=== PATIENT | female | born 1940 | race Caucasian/White ===

== ENCOUNTER → 2023-05-17 09:22 | Outpatient (REF) | payer MEDICARE, OTHER, SELFPAY ==
[2023-05-17 09:49] LABS: % Basophils 0.8 % (0-2); % Eosinophils 1.8 % (0-6); % Immature Granulocytes 0.2 % (0-0.5); % Lymphocytes 35.1 % (20.5-51.1); % Monocytes 8.2 % (1.7-9.3); % Neutrophils 53.9 % (42.2-75.2); Absolute Eosinophils 0.1 10^3/uL (0-0.7); Absolute Lymphocytes 1.8 10^3/uL (1.2-3.4); Absolute Monocytes 0.4 10^3/uL (0.1-0.6); Absolute Neutrophils 2.7 10^3/uL (1.4-6.5); Hemoglobin 14.3 g/dL (12.0-16.0); Mean Corpuscular Hgb 30.6 pg (27.0-31.0); Mean Corpuscular Volume 89.9 fL (81.0-99.0); Mean Platelet Volume 10.4 fL (7.4-10.4); Nucleated Red Blood Cells % 0 %; Platelet Count 173 10^3/uL (130-400); Red Blood Cell Count 4.67 10^6/uL (4.20-5.40); Red Cell Dist. Width 13.2 % (11.5-14.5)
[2023-05-17 10:20] LABS: ALT (SGPT) 24 U/L (0-35); AST (SGOT) 35 U/L (14-36); Albumin 4.1 g/dl (3.5-5.0); Alkaline Phosphatase 92 U/L (38-126); Blood Urea Nitrogen 24 mg/dl (7-17); Calcium 10.6 mg/dl (8.4-10.2); Carbon Dioxide 31 mmol/L (22-30); Chloride 99 mmol/L (98-107); Glucose 112 mg/dl (70-99); HDL Cholesterol 70 mg/dl; LDL Cholesterol, Calculated 63 mg/dl; Potassium 4.5 mmol/L (3.5-5.1); Sodium 140 mmol/L (135-145); Total Bilirubin 1.1 mg/dl (0.2-1.3); Total Cholesterol 148 mg/dl (50-199); Total Protein 7.8 g/dl (6.3-8.2); Triglyceride 78 mg/dl (10-149); Very Low Density Lipoprotein 15 mg/dl (0-30); eGFR 56.95
[2023-05-17 12:13] LABS: Glycohemoglobin (HgbA1c) 6.5 % (4.0-5.6)
== END ==
LOC: REG 09:22
PROVIDERS: ATTENDING PHYSICIAN Internal Medicine
DX: E78.5 Hyperlipidemia, unspecified (principal); Z95.2 Presence of prosthetic heart valve; R73.01 Impaired fasting glucose
CPT/HCPCS: 36415; 80053; 80061; 83036; 85025

== ENCOUNTER → 2023-05-25 11:42 | Outpatient (REF) | payer MEDICARE, OTHER, SELFPAY ==
[2023-05-25 13:50] LABS: C-Reactive Protein < 5.00 mg/L (0.0-10.00)
[2023-05-25 15:28] LABS: Erythrocyte Sed Rate 8 mm/hour (0-20)
[2023-05-26 13:32] LABS: Rheumatoid Agglutinin Less Than 10 IU (<10 IU)
[2023-05-28 09:13] LABS: ANA, IgG Reflex to HEp-2 Detected (None Detected)
[2023-05-30 07:08] LABS: ANA, HEp-2, IgG Detected (<1:80)
[2023-05-30 07:47] LABS: ANA Pattern Speckled
== END ==
LOC: REG 11:42
PROVIDERS: ATTENDING PHYSICIAN Family Medicine
DX: M25.541 Pain in joints of right hand (principal); M25.542 Pain in joints of left hand; M25.50 Pain in unspecified joint
CPT/HCPCS: 36415; 73120; 85652; 86038; 86039; 86140; 86430

== ENCOUNTER → 2023-07-18 14:30 | Outpatient (REF) | payer MEDICARE, OTHER, SELFPAY ==
[2023-07-18 15:36] LABS: % Basophils 0.5 % (0-2); % Eosinophils 1.6 % (0-6); % Immature Granulocytes 0.2 % (0-0.5); % Lymphocytes 34.8 % (20.5-51.1); % Monocytes 7.1 % (1.7-9.3); % Neutrophils 55.8 % (42.2-75.2); Absolute Eosinophils 0.1 10^3/uL (0-0.7); Absolute Monocytes 0.4 10^3/uL (0.1-0.6); Absolute Neutrophils 3.1 10^3/uL (1.4-6.5); Hemoglobin 12.3 g/dL (12.0-16.0); Mean Corp Hgb Conc. 33.2 g/dL (33.0-37.0); Mean Corpuscular Hgb 30.6 pg (27.0-31.0); Mean Platelet Volume 10.1 fL (7.4-10.4); Nucleated Red Blood Cells % 0 %; Platelet Count 160 10^3/uL (130-400); Red Blood Cell Count 4.02 10^6/uL (4.20-5.40); Red Cell Dist. Width 13.1 % (11.5-14.5); White Blood Cell Count 5.6 10^3/uL (4.8-10.8)
[2023-07-18 15:46] LABS: Erythrocyte Sed Rate 15 mm/hour (0-20)
[2023-07-18 16:08] LABS: ALT (SGPT) 29 U/L (0-35); AST (SGOT) 37 U/L (14-36); Albumin 4.6 g/dl (3.5-5.0); Alkaline Phosphatase 103 U/L (38-126); Blood Urea Nitrogen 23 mg/dl (7-17); Calcium 9.9 mg/dl (8.4-10.2); Carbon Dioxide 29 mmol/L (22-30); Chloride 103 mmol/L (98-107); Creatine Phosphokinase 102 U/L (30-135); Glucose 102 mg/dl (70-99); Potassium 3.5 mmol/L (3.5-5.1); Sodium 139 mmol/L (135-145); Total Bilirubin 0.7 mg/dl (0.2-1.3); Total Protein 7.8 g/dl (6.3-8.2); Uric Acid 7.9 mg/dl (2.5-6.2); eGFR > 60.00
[2023-07-18 16:12] LABS: C-Reactive Protein < 5.00 mg/L (0.0-10.00)
[2023-07-18 16:30] LABS: Complement C3 119 mg/dl (88-165)
[2023-07-18 17:08] LABS: Urine Albumin Negative (Neg - Trace); Urine Bilirubin Negative (Negative); Urine Character Clear (Clear); Urine Color Yellow; Urine Glucose Negative (Negative); Urine Ketone Negative (Negative); Urine Leukocyte Negative (Negative); Urine Nitrite Negative (Negative); Urine Occult Blood Negative (Negative); Urine Urobilinogen Negative (Neg - 1+)
[2023-07-18 17:16] LABS: Urine Red Blood Cell None Seen /HPF (0-2); Urine Squamous Cell 0-2 /LPF (Few)
[2023-07-18 17:17] LABS: Urine White Cell None Seen /HPF (0-5)
[2023-07-18 17:36] LABS: Protein/creatinine Ratio 0.7; Urine Protein 10 mg/dl
[2023-07-20 14:29] LABS: Aldolase 4.3 U/L (1.2-7.6)
[2023-07-20 23:50] LABS: Anti-Xa Qualitative Interp Present (Not Present); Anticoagulant Med Neutralizati DOAC-Stop (Not Performed); Hexagonal Phospholipid Confirm Not Performed s (<=7.9); Neutralized PTT-LA Ratio Not Performed (<=1.20); Neutralized dRVTT Screen Ratio 0.92 (<=1.20); PTT-LA Ratio 0.96 (<=1.20); Prothrombin Time 16.2 s (12.0-15.5); Thrombin Time Not Performed s (<=19.5); dRVTT 1.1 Mix Ratio Not Performed (<=1.20); dRVTT Confirmation Ratio Not Performed (<=1.20); dRVTT Screen Ratio 1.24 (<=1.20)
[2023-07-21 01:34] LABS: CCP Antibody IgG/IgA 4 Units (0-19)
[2023-07-21 02:25] LABS: ANA, IgG Reflex to HEp-2 Detected (None Detected)
[2023-07-21 02:30] LABS: Beta-2-Glycoprotein I Ab. IgG <10 SGU (<=20); Beta-2-Glycoprotein I Ab. IgM <10 SMU (<=20)
[2023-07-21 08:13] LABS: Smith/RNP (ENA), IgG 1 Units (0-19)
[2023-07-21 14:44] LABS: Jo-1 Antibodies 1 AU/mL (0-40); SSA 52 (Ro)(ENA) Ab, IgG 3 AU/mL (0-40); SSA 60 (Ro)(ENA) Ab, IgG 82 AU/mL (0-40); SSB (La)(ENA) Ab, IgG 14 AU/mL (0-40); Smith (ENA) Antibody, IgG 1 AU/mL (0-40)
[2023-07-21 17:18] LABS: ds-DNA Ab, IgG Reflex To Titer 1 IU (0-24)
[2023-07-21 18:05] LABS: Cardiolipin IgA Antibody <10 APL (<=11); Cardiolipin IgM Antibody <10 MPL (<=12); Cardiolipin Igg Antibody <10 GPL (<=14)
[2023-07-22 13:20] LABS: ANA, HEp-2, IgG Detected (<1:80)
== END ==
LOC: REG 14:30
PROVIDERS: ATTENDING PHYSICIAN Physician Assistant; FAMILY PHYSICIAN Family Medicine
DX: G89.29 Other chronic pain (principal); I73.00 Raynaud's syndrome without gangrene; M06.4 Inflammatory polyarthropathy; M10.9 Gout, unspecified; M32.9 Systemic lupus erythematosus, unspecified; M54.50 Low back pain, unspecified; M79.89 Other specified soft tissue disorders; R76.8 Other specified abnormal immunological findings in serum
CPT/HCPCS: 36415; 80053; 81003; 81015; 82085; 82550; 82570; 84156; 84550; 85025; 85520; 85610; 85613; 85652; 85730; 86038; 86039; 86140; 86146; 86147; 86160; 86200; 86225; 86235

== ENCOUNTER → 2023-08-24 10:54 | Outpatient (REF) | payer MEDICARE, OTHER, SELFPAY ==
[2023-08-25 05:48] LABS: IgA 242 mg/dl (70-400); IgG 1560 mg/dl (700-1600); IgM 54 mg/dl (40-230)
[2023-08-25 15:57] LABS: Rheumatoid Agglutinin Less Than 10 IU (<10 IU)
[2023-08-26 10:12] LABS: IgE 52 kU/L (<=214)
== END ==
LOC: REG 10:54
PROVIDERS: ATTENDING PHYSICIAN Internal Medicine; FAMILY PHYSICIAN Family Medicine
DX: M35.00 Sjogren syndrome, unspecified (principal); R80.9 Proteinuria, unspecified; M79.672 Pain in left foot; R80.2 Orthostatic proteinuria, unspecified
CPT/HCPCS: 36415; 73630; 82784; 82785; 84155; 84165; 86430

== ENCOUNTER → 2023-08-29 11:42 | Outpatient (REF) | payer MEDICARE, OTHER, SELFPAY ==
[2023-08-29 14:15] LABS: Urine Protein 14 mg/dl (0-12)
[2023-08-29 15:01] LABS: 24 Hour Urine Total Volume 1250 ml
== END ==
LOC: REG 11:42
PROVIDERS: ATTENDING PHYSICIAN Internal Medicine; FAMILY PHYSICIAN Family Medicine
DX: M35.00 Sjogren syndrome, unspecified (principal); R80.9 Proteinuria, unspecified
CPT/HCPCS: 36415; 81050; 84156

== ENCOUNTER → 2023-11-10 10:47 | Outpatient (REF) | payer MEDICARE, OTHER, SELFPAY | LOC: PAVMRI 10:47 | PROVIDERS: ATTENDING PHYSICIAN Internal Medicine; FAMILY PHYSICIAN Family Medicine | DX: M79.672 Pain in left foot (principal) | CPT/HCPCS: 73720 ==

== ENCOUNTER → 2023-11-15 09:27 | Outpatient (REF) | payer MEDICARE, OTHER, SELFPAY ==
[2023-11-15 09:56] LABS: % Basophils 0.4 % (0-2); % Eosinophils 2.3 % (0-6); % Lymphocytes 35.2 % (20.5-51.1); % Neutrophils 54.1 % (42.2-75.2); Absolute Eosinophils 0.1 10^3/uL (0-0.7); Absolute Lymphocytes 1.8 10^3/uL (1.2-3.4); Absolute Monocytes 0.4 10^3/uL (0.1-0.6); Absolute Neutrophils 2.8 10^3/uL (1.4-6.5); Hematocrit 39.9 % (37.0-47.0); Hemoglobin 13.6 g/dL (12.0-16.0); Mean Corp Hgb Conc. 34.1 g/dL (33.0-37.0); Mean Corpuscular Hgb 31.4 pg (27.0-31.0); Mean Corpuscular Volume 92.1 fL (81.0-99.0); Nucleated Red Blood Cells % 0 %; Platelet Count 155 10^3/uL (130-400); Red Blood Cell Count 4.33 10^6/uL (4.20-5.40); Red Cell Dist. Width 13.2 % (11.5-14.5); White Blood Cell Count 5.1 10^3/uL (4.8-10.8)
[2023-11-15 10:28] LABS: ALT (SGPT) 24 U/L (0-35); AST (SGOT) 36 U/L (14-36); Albumin 4.5 g/dl (3.5-5.0); Alkaline Phosphatase 93 U/L (38-126); Blood Urea Nitrogen 23 mg/dl (7-17); Calcium 9.8 mg/dl (8.4-10.2); Carbon Dioxide 29 mmol/L (22-30); Chloride 103 mmol/L (98-107); Glucose 107 mg/dl (70-99); HDL Cholesterol 65 mg/dl; LDL Cholesterol, Calculated 61 mg/dl; Sodium 143 mmol/L (135-145); Total Bilirubin 0.9 mg/dl (0.2-1.3); Total Cholesterol 142 mg/dl (50-199); Total Protein 7.4 g/dl (6.3-8.2); Triglyceride 82 mg/dl (10-149); Very Low Density Lipoprotein 16 mg/dl (0-30); eGFR > 60.00
[2023-11-15 10:34] LABS: Glycohemoglobin (HgbA1c) 6.3 % (4.0-5.6)
== END ==
LOC: REG 09:27
PROVIDERS: ATTENDING PHYSICIAN Family Medicine
DX: R73.01 Impaired fasting glucose (principal); E78.5 Hyperlipidemia, unspecified; R53.83 Other fatigue
CPT/HCPCS: 36415; 80053; 80061; 83036; 85025

== ENCOUNTER → 2024-02-01 16:28 | Outpatient (REF) | payer MEDICARE, OTHER, SELFPAY | LOC: WDC 16:28 | PROVIDERS: ATTENDING PHYSICIAN Obstetrics & Gynecology Gynecology; FAMILY PHYSICIAN Family Medicine | DX: Z01.419 Encounter for gynecological examination (general) (routine) without abnormal findings (principal); Z12.31 Encounter for screening mammogram for malignant neoplasm of breast | CPT/HCPCS: 77063; 77067 ==

== ENCOUNTER 2024-03-12 14:51 | Emergency (ER) | payer MEDICARE, OTHER, SELFPAY ==
[2024-03-12] VITALS (7 sets, daily range): BP systolic 147–170; BP diastolic 76–100; BMI 22.5
[2024-03-12 15:45] LABS: % Basophils 0.5 % (0-2); % Eosinophils 2.6 % (0-6); % Immature Granulocytes 0.6 % (0-0.5); % Lymphocytes 23.9 % (20.5-51.1); % Monocytes 6.5 % (1.7-9.3); % Neutrophils 65.9 % (42.2-75.2); Absolute Eosinophils 0.2 10^3/uL (0-0.7); Absolute Lymphocytes 1.5 10^3/uL (1.2-3.4); Absolute Monocytes 0.4 10^3/uL (0.1-0.6); Absolute Neutrophils 4.2 10^3/uL (1.4-6.5); Hematocrit 42.4 % (37.0-47.0); Hemoglobin 14.3 g/dL (12.0-16.0); Mean Corp Hgb Conc. 33.7 g/dL (33.0-37.0); Mean Corpuscular Hgb 30.8 pg (27.0-31.0); Mean Corpuscular Volume 91.4 fL (81.0-99.0); Nucleated Red Blood Cells % 0 %; Platelet Count 150 10^3/uL (130-400); Red Blood Cell Count 4.64 10^6/uL (4.20-5.40); Red Cell Dist. Width 13.3 % (11.5-14.5); White Blood Cell Count 6.4 10^3/uL (4.8-10.8)
[2024-03-12 16:02] LABS: ALT (SGPT) 43 U/L (0-35); AST (SGOT) 56 U/L (14-36); Albumin 4.7 g/dl (3.5-5.0); Alkaline Phosphatase 85 U/L (38-126); Blood Urea Nitrogen 14 mg/dl (7-17); Carbon Dioxide 29 mmol/L (22-30); Chloride 102 mmol/L (98-107); Glucose 114 mg/dl (70-99); Potassium 4.5 mmol/L (3.5-5.1); Sodium 138 mmol/L (135-145); Total Protein 7.7 g/dl (6.3-8.2); eGFR > 60.00
--- NOTE | 2024-03-12 18:36 | ED.GENMED ---
History of Present Illness
General
Chief Complaint: Abdominal Symptoms
Source: patient
Exam Limitations: none
Time Seen by Provider: 03/12/24 18:18
History of Present Illness
History of Present Illness:
83-year-old female on [place] presents with persistent headache and dizziness after striking her head 2 days ago getting into her vehicle. That evening she also had episodes of nausea vomiting and diarrhea. She has since been drinking water and
eating toast. She denies abdominal pain. No further diarrhea or vomiting. She is concerned from her head strike. She also concerns that she started hydroxychloroquine 3 weeks ago for presumed Sjogren's. She did stop this Tuesday after having
the episodes of vomiting and diarrhea. No chest pain
Past History
Past History
ED Past Medical History: Arrthythmia, CVA and HTN
ED Past Surgical History: Gynecological
Social History
Tobacco: Non-smoker
Alcohol: None
Drug: None
Personal:
Living: with family
Family History
Family History: Other (Father with [place] mother with stroke)
Phy Exam
Physical Exam
Physical Exam:
General: Well-appearing female no acute respiratory distress
HEENT: Normocephalic contusion noted to right forehead. Pupils equal round react light TMs normal
Heart: Regular rate and rhythm no murmurs
Lungs: Clear no wheeze
Abdomen is soft nontender nondistended no guarding or rebound
Neurologic: Alert and oriented normal gait conversing appropriately
Course
Orders/Labs/Results
Orders:
Orders
03/12/24 15:35
Complete Blood Count/With Diff Urgent
Comprehensive Metabolic Panel Urgent
03/12/24 18:35
CT Head W/o Iv Contrast Urgent
Comment:
Reason For Exam: head injury, dizziness
Abnormal Lab Results
03/12/24
15:35
Immature Gran % 0.6 H %
(0-0.5)
Glucose 114 H mg/dl
(70-99)
AST 56 H U/L
(14-36)
ALT 43 H U/L
(0-35)
03/12/24 15:35
03/12/24 15:35
Vital Signs
Initial and Last Documented VS:
Initial Vital Signs
Temp Pulse Resp BP Pulse Ox
98 F 102 18 147/99 98
03/12/24 15:21 03/12/24 15:21 03/12/24 15:21 03/12/24 15:21 03/12/24 15:21
Last Documented Vital Signs
Temp Pulse Resp BP Pulse Ox
98 F 93 16 163/80 97
03/12/24 15:21 03/12/24 22:15 03/12/24 22:15 03/12/24 22:00 03/12/24 22:15
MDM/Problems Addressed
Differential Diagnosis Includes:
Patient's main concern is dizziness in the setting of recent head strike on blood thinners. Triage note relayed that she has been nauseous vomiting and having diarrhea since Tuesday however 3 days ago she had 4 hours worth of nausea vomiting
diarrhea but since then she has had no further vomiting or diarrhea. She is tolerating oral fluids she has a benign abdominal assessment.
Labs reviewed without significant finding we will CT the patient's head secondary to the trauma
*Critical Care Note
Total Time (30-74mins, 75-104mins- exclusive of procedures): Not Applicable
Update Note
Update Note:
CT of the head negative. Labs reviewed without significant finding. Patient reassured. Stable for discharge home
ED Attending Note
-
Portions of this chart may have been created with voice recognition software.� Occasional wrong word or��sound alike� substitutions may have occurred due to the inherent limitations of voice recognition software.
Discharge Plan
Departure
Patient Disposition: Home (Routine Discharge)
Date of Disposition: 03/12/24
Time of Disposition: 23:00
Patient with high blood pressure during this ER visit?: No
Discharge Problem:
Contusion
Instructions: Contusion
Prescriptions:
No Action
estradiol 1 MG tablet
0.5 mg PO DAILY
diclofenac sodium 1 DROP drops
1 drp ophthalmic (eye) QIDPRN PRN (Reason: pain R eye)
calcium carbonate [Antacid (calcium carbonate)] 1 TABLET tablet,chewable
500 mg PO BIDPRN PRN (Reason: heart burn)
loratadine 10 MG tablet
10 mg PO DAILY PRN (Reason: allergies)
Ca-D3-mag [id number]-mqq-phuc-bor [Calcium 600-D3 Plus (mag-zinc)] 1 EACH tablet
1 ea PO BID
Patient Comments:
patient is off for 2 months now, will start back up in December
famotidine 20 MG tablet
40 mg PO HS
metoprolol succinate 25 MG tablet extended release 24 hr
50 mg PO HS
furosemide 20 MG tablet
20 mg PO .EVERYOTHERDAY
ipratropium bromide 1 SPRAY spray,non-aerosol
2 spray intranasal TID
rosuvastatin 5 MG tablet
5 mg PO QPM
guaifenesin [Mucus Relief ER] 600 MG tablet extended release 12hr
600 mg PO DAILY
metoprolol succinate 25 MG tablet extended release 24 hr
37.5 mg PO .AM
diltiazem HCl 120 MG capsule,extended release 24hr
120 mg PO DAILY
Voltaren
topical PRN PRN (Reason: pain)
acetaminophen 325 MG tablet
500 mg PO Q4HPRN PRN (Reason: pain)
aspirin 81 MG tablet,delayed release (DR/EC)
81 mg PO DAILY
cyanocobalamin (vitamin B-12) 1,000 MCG tablet
1,000 mcg PO DAILY
apixaban [Eliquis] 5 MG tablet
5 mg PO BID
meclizine 25 MG tablet
25 mg PO Q8HPRN PRN (Reason: nausea or vertigo) Qty: 12 0RF
ondansetron 4 MG tablet,disintegrating
4 mg PO TIDPRN PRN (Reason: nausea/vomiting) Qty: 12 0RF
Referrals:
Onel Colmenares Jr., DO [Family Provider] -
Activity Restrictions/Additional Instructions:
Return here for worsening symptoms otherwise follow-up with your doctor
Interventions
Interventions:
*Risk Screen - Suicide Last Done: 03/12/24 15:21
*General Assessment Last Done: 03/12/24 15:21
*Neglect/Abuse Screening Last Done: 03/12/24 15:21
ED- Fall Risk Assessment Last Done: 03/12/24 18:47
*ED COVID-19 Vaccine History Last Done: 03/12/24 18:46
UP-Valkjm-Slpycsvvsr Assessment Last Done: 03/12/24 18:47
Discharge Date and Time
Print Language: KAZAKH
== END 2024-03-12 23:35 | disposition home or self-care (01) ==
LOC: EMR 14:51
PROVIDERS: Emergency Medicine; EMERGENCY PHYSICIAN Student in an Organized Health Care Education/Training Program; FAMILY PHYSICIAN Family Medicine
DX: S00.83XA Contusion of other part of head, initial encounter (principal); V48.4XXA Person boarding or alighting a car injured in noncollision transport accident, initial encounter; I10 Essential (primary) hypertension; Z86.73 Personal history of transient ischemic attack (TIA), and cerebral infarction without residual deficits; Z79.01 Long term (current) use of anticoagulants
CPT/HCPCS: 99284; 70450; 80053; 85025

== ENCOUNTER → 2024-03-23 09:39 | Outpatient (REF) | payer MEDICARE, OTHER, SELFPAY ==
[2024-03-23 11:02] LABS: % Basophils 0.7 % (0-2); % Eosinophils 1.2 % (0-6); % Immature Granulocytes 0.2 % (0-0.5); % Lymphocytes 27.4 % (20.5-51.1); % Monocytes 6.5 % (1.7-9.3); Absolute Eosinophils 0.1 10^3/uL (0-0.7); Absolute Lymphocytes 1.6 10^3/uL (1.2-3.4); Absolute Monocytes 0.4 10^3/uL (0.1-0.6); Absolute Neutrophils 3.7 10^3/uL (1.4-6.5); Hematocrit 46.8 % (37.0-47.0); Hemoglobin 15.3 g/dL (12.0-16.0); Mean Corp Hgb Conc. 32.7 g/dL (33.0-37.0); Mean Corpuscular Hgb 29.9 pg (27.0-31.0); Mean Corpuscular Volume 91.4 fL (81.0-99.0); Mean Platelet Volume 10.4 fL (7.4-10.4); Nucleated Red Blood Cells % 0 %; Platelet Count 166 10^3/uL (130-400); Red Blood Cell Count 5.12 10^6/uL (4.20-5.40); Red Cell Dist. Width 13.2 % (11.5-14.5); White Blood Cell Count 5.8 10^3/uL (4.8-10.8)
[2024-03-23 12:06] LABS: ALT (SGPT) 36 U/L (0-35); AST (SGOT) 48 U/L (14-36); Albumin 4.8 g/dl (3.5-5.0); Alkaline Phosphatase 68 U/L (38-126); Blood Urea Nitrogen 15 mg/dl (7-17); Calcium 10.6 mg/dl (8.4-10.2); Carbon Dioxide 32 mmol/L (22-30); Chloride 97 mmol/L (98-107); Glucose 103 mg/dl (70-99); HDL Cholesterol 76 mg/dl; LDL Cholesterol, Calculated 54 mg/dl; Potassium 3.8 mmol/L (3.5-5.1); Sodium 139 mmol/L (135-145); Total Bilirubin 1.2 mg/dl (0.2-1.3); Total Cholesterol 143 mg/dl (50-199); Total Protein 7.8 g/dl (6.3-8.2); Triglyceride 69 mg/dl (10-149); Very Low Density Lipoprotein 13 mg/dl (0-30); eGFR > 60.00
== END ==
LOC: REG 09:39
PROVIDERS: ATTENDING PHYSICIAN Family Medicine
DX: R73.01 Impaired fasting glucose (principal); E78.5 Hyperlipidemia, unspecified; M25.50 Pain in unspecified joint; R53.83 Other fatigue; Z13.29 Encounter for screening for other suspected endocrine disorder
CPT/HCPCS: 36415; 80053; 80061; 83036; 84443; 85025

== ENCOUNTER → 2024-03-30 09:10 | Outpatient (REF) | payer MEDICARE, OTHER, SELFPAY ==
[2024-03-30 10:30] LABS: ALT (SGPT) 31 U/L (0-35); AST (SGOT) 42 U/L (14-36); Blood Urea Nitrogen 14 mg/dl (7-17); Calcium 10.2 mg/dl (8.4-10.2); Carbon Dioxide 34 mmol/L (22-30); Chloride 99 mmol/L (98-107); GGTP 29 U/L (12-43); Glucose 110 mg/dl (70-99); Potassium 5.2 mmol/L (3.5-5.1); Sodium 139 mmol/L (135-145); eGFR > 60.00
[2024-03-30 11:02] LABS: Hepatitis B Surface Antigen Negative (Negative)
[2024-03-30 11:20] LABS: Hepatitis B Core Ab, Total Negative (Negative); Hepatitis B Surface Antibody Negative; Hepatitis C Antibody Negative (Negative)
== END ==
LOC: REG 09:10
PROVIDERS: ATTENDING PHYSICIAN Family Medicine
DX: R79.89 Other specified abnormal findings of blood chemistry (principal); E78.5 Hyperlipidemia, unspecified
CPT/HCPCS: 36415; 80048; 82977; 84450; 84460; 86704; 86706; 86803; 87340

== ENCOUNTER → 2024-04-10 07:48 | Outpatient (REF) | payer MEDICARE, OTHER, SELFPAY | LOC: HWRAD 07:48 | PROVIDERS: ATTENDING PHYSICIAN Family Medicine | DX: R79.89 Other specified abnormal findings of blood chemistry (principal) | CPT/HCPCS: 76700 ==

== ENCOUNTER → 2024-04-20 10:55 | Outpatient (REF) | payer MEDICARE, OTHER, SELFPAY | LOC: RAD 10:55 | PROVIDERS: ATTENDING PHYSICIAN Family Medicine | DX: Z78.0 Asymptomatic menopausal state (principal); Z13.820 Encounter for screening for osteoporosis | CPT/HCPCS: 77080 ==

== ENCOUNTER → 2024-08-15 08:46 | Outpatient (REF) | payer MEDICARE, OTHER, SELFPAY ==
[2024-08-15 09:27] LABS: % Basophils 0.6 % (0-2); % Immature Granulocytes 1.2 % (0-0.5); % Lymphocytes 27.9 % (20.5-51.1); % Monocytes 7.8 % (1.7-9.3); % Neutrophils 62.5 % (42.2-75.2); Absolute Immature Granulocytes 0.1 10^3/uL (0-0.05); Absolute Lymphocytes 1.4 10^3/uL (1.2-3.4); Absolute Monocytes 0.4 10^3/uL (0.1-0.6); Absolute Neutrophils 3.1 10^3/uL (1.4-6.5); Hematocrit 41.3 % (37.0-47.0); Hemoglobin 13.3 g/dL (12.0-16.0); Mean Corp Hgb Conc. 32.2 g/dL (33.0-37.0); Mean Corpuscular Hgb 29.9 pg (27.0-31.0); Mean Corpuscular Volume 92.8 fL (81.0-99.0); Mean Platelet Volume 10.1 fL (7.4-10.4); Nucleated Red Blood Cells % 0 %; Platelet Count 141 10^3/uL (130-400); Red Blood Cell Count 4.45 10^6/uL (4.20-5.40); Red Cell Dist. Width 13.3 % (11.5-14.5); White Blood Cell Count 4.9 10^3/uL (4.8-10.8)
[2024-08-15 10:09] LABS: Glycohemoglobin (HgbA1c) 6.2 % (4.0-5.6)
[2024-08-15 10:33] LABS: ALT (SGPT) 40 U/L (0-35); AST (SGOT) 43 U/L (14-36); Albumin 4.2 g/dl (3.5-5.0); Alkaline Phosphatase 106 U/L (38-126); Blood Urea Nitrogen 19 mg/dl (7-17); Calcium 10.4 mg/dl (8.4-10.2); Carbon Dioxide 27 mmol/L (22-30); Chloride 107 mmol/L (98-107); Glucose 105 mg/dl (70-99); HDL Cholesterol 50 mg/dl; LDL Cholesterol, Calculated 37 mg/dl; Potassium 4.5 mmol/L (3.5-5.1); Sodium 141 mmol/L (135-145); Total Bilirubin 1.1 mg/dl (0.2-1.3); Total Cholesterol 99 mg/dl (50-199); Total Protein 7.2 g/dl (6.3-8.2); Triglyceride 63 mg/dl (10-149); Very Low Density Lipoprotein 12 mg/dl (0-30)
== END ==
LOC: REG 08:46
PROVIDERS: ATTENDING PHYSICIAN Family Medicine
DX: R73.01 Impaired fasting glucose (principal); E78.5 Hyperlipidemia, unspecified; M25.50 Pain in unspecified joint; R53.83 Other fatigue
CPT/HCPCS: 36415; 80053; 80061; 83036; 85025

== ENCOUNTER → 2024-09-19 08:39 | Outpatient (REF) | payer MEDICARE, OTHER, SELFPAY ==
[2024-09-19 09:42] LABS: Hematocrit 41.4 % (37.0-47.0); Hemoglobin 13.4 g/dL (12.0-16.0); Mean Corp Hgb Conc. 32.4 g/dL (33.0-37.0); Mean Corpuscular Volume 91.6 fL (81.0-99.0); Nucleated Red Blood Cells % 0 %; Platelet Count 153 10^3/uL (130-400); Red Cell Dist. Width 13.8 % (11.5-14.5)
[2024-09-19 10:13] LABS: Glycohemoglobin (HgbA1c) 6.4 % (4.0-5.6)
[2024-09-19 11:14] LABS: CRP, Ultra Sensitive 1.71 mg/L (0.30-5.00)
[2024-09-19 11:17] LABS: ALT (SGPT) 38 U/L (0-35); AST (SGOT) 42 U/L (14-36); Albumin 4.3 g/dl (3.5-5.0); Alkaline Phosphatase 102 U/L (38-126); Blood Urea Nitrogen 22 mg/dl (7-17); Calcium 10.4 mg/dl (8.4-10.2); Carbon Dioxide 26 mmol/L (22-30); Chloride 109 mmol/L (98-107); Glucose 110 mg/dl (70-99); HDL Cholesterol 57 mg/dl; LDL Cholesterol, Calculated 57 mg/dl; Magnesium 2.1 mg/dl (1.6-2.3); Potassium 4.7 mmol/L (3.5-5.1); Sodium 141 mmol/L (135-145); Total Protein 7.3 g/dl (6.3-8.2); Very Low Density Lipoprotein 11 mg/dl (0-30); eGFR > 60.00
== END ==
LOC: REG 08:39
PROVIDERS: ATTENDING PHYSICIAN Internal Medicine Cardiovascular Disease; FAMILY PHYSICIAN Family Medicine
DX: I48.0 Paroxysmal atrial fibrillation (principal); I35.0 Nonrheumatic aortic (valve) stenosis; I35.1 Nonrheumatic aortic (valve) insufficiency; I10 Essential (primary) hypertension; E78.5 Hyperlipidemia, unspecified; I47.10 Supraventricular tachycardia, unspecified; I49.3 Ventricular premature depolarization; R09.89 Other specified symptoms and signs involving the circulatory and respiratory systems; I34.0 Nonrheumatic mitral (valve) insufficiency; R73.01 Impaired fasting glucose; R73.03 Prediabetes
CPT/HCPCS: 36415; 80053; 80061; 82550; 83036; 83718; 83735; 83880; 84439; 84443; 85025; 86141

== ENCOUNTER → 2024-10-12 10:20 | Outpatient (REF) | payer MEDICARE, OTHER, SELFPAY | LOC: RAD 10:20 | PROVIDERS: ATTENDING PHYSICIAN Internal Medicine Cardiovascular Disease; FAMILY PHYSICIAN Family Medicine | DX: I48.0 Paroxysmal atrial fibrillation (principal); I35.0 Nonrheumatic aortic (valve) stenosis; I35.1 Nonrheumatic aortic (valve) insufficiency; I10 Essential (primary) hypertension; E78.5 Hyperlipidemia, unspecified; I47.10 Supraventricular tachycardia, unspecified; I49.3 Ventricular premature depolarization; I34.0 Nonrheumatic mitral (valve) insufficiency; R73.01 Impaired fasting glucose; I80.291 Phlebitis and thrombophlebitis of other deep vessels of right lower extremity; I80.209 Phlebitis and thrombophlebitis of unspecified deep vessels of unspecified lower extremity | CPT/HCPCS: 93971 ==

== ENCOUNTER 2024-12-08 20:55 | Emergency (ER) | payer MEDICARE, OTHER, SELFPAY ==
[2024-12-08 20:59] VITALS: BMI 21.6
[2024-12-08 21:01] VITALS: BP 159/91
[2024-12-08 21:18] LABS: Hematocrit 41.4 % (37.0-47.0); Hemoglobin 13.9 g/dL (12.0-16.0); Mean Corp Hgb Conc. 33.6 g/dL (33.0-37.0); Mean Corpuscular Volume 88.5 fL (81.0-99.0); Nucleated Red Blood Cells % 0 %; Platelet Count 153 10^3/uL (130-400); Red Cell Dist. Width 14.1 % (11.5-14.5)
[2024-12-08 22:00] VITALS: BP 137/75
[2024-12-08 22:00] LABS: Blood Urea Nitrogen 21 mg/dl (7-17); Calcium 9.8 mg/dl (8.4-10.2); Carbon Dioxide 27 mmol/L (22-30); Chloride 102 mmol/L (98-107); Estimated Creatinine Clearance 48 ml/min; Glucose 184 mg/dl (70-99); Lipase 279 U/L (23-300); Sodium 137 mmol/L (135-145); eGFR > 60.00
[2024-12-08 23:00] VITALS: BP 135/74
[2024-12-08 23:19] LABS: ALT (SGPT) 33 U/L (0-35); AST (SGOT) 42 U/L (14-36); Albumin 4.3 g/dl (3.5-5.0); Alkaline Phosphatase 104 U/L (38-126); Potassium 3.9 mmol/L (3.5-5.1); Total Protein 7.3 g/dl (6.3-8.2)
[2024-12-09] VITALS (7 sets, daily range): BP systolic 113–142; BP diastolic 59–89; PULSE 96–104
[2024-12-09] MEDS: ANTIVERT 25 MG PO (00:05)
--- NOTE | 2024-12-09 01:23 | ED.GENMED ---
History of Present Illness
General
Chief Complaint: Dizziness
Source: patient and previous hospital records (ED visit for somewhat similar complaint September 2020; physical therapy sessions 2020 and again 2022 for dizziness/vertigo treatment)
Exam Limitations: none
Time Seen by Provider: 12/08/24 22:50
Nursing documentation reviewed up to this point in time: agreed with
History of Present Illness
History of Present Illness:
The patient is a 83-year-old female who presented with a sudden onset of dizziness while cooking dinner. The dizziness began around 7:30 PM and was described as severe enough to compel her to lie down on the sofa, where she felt as though the couch
was moving towards her, creating a sensation of being engulfed. The patient then experienced vomiting. She reports no headache or neck pain. At the time of the episode, her , who has significant visual impairment, stayed with her. Upon
arrival of EMS, she was administered ondansetron for nausea, which provided relief. The patient mentioned a history of atrial fibrillation and is currently on apixaban and metoprolol. She also has a history of a stroke in 2018, which resulted in
persistent mild left-arm weakness. The patient was previously diagnosed with vertigo in 2020 and engaged in physical therapy during 2020 and 2022. She reports no fall during the current episode.
Currently feeling markedly improved.
Upon review of records, evaluated in this ED September 2020 with somewhat similar complaints of dizziness, a sense of spinning, movement that was worse with change in position. Unremarkable ED visit at that time, was given a dose of meclizine with
improvement.
She has history of aortic stenosis status post TAVR October 2019. Follows regularly with cardiology and was started on lisinopril just 2 days ago. Patient is concerned that lisinopril may be cause for her symptoms. She denies lightheadedness or a
sensation that she will faint. No chest pain or palpitations. No reported hypotension prehospital.
Past History
Past History
ED Past Medical History: Arrthythmia (Chronic atrial fibrillation), CHF, CVA, HTN, Hypercholesterolemia, Valvular disease and Psychiatric
ED Past Surgical History: Cardiac (TAVR 2020) and Gynecological (Hysterectomy)
Social History
Tobacco: Non-smoker
Alcohol: None
Drug: None
Personal:
Living: with family
Family History
Family History: Other (Father with [place] mother with stroke)
Phy Exam
Physical Exam
Physical Exam:
GENERAL: 83-year-old woman appears somewhat younger than stated age, bright and alert, pleasant, easily communicative and in no acute distress.
EYE: pupils equal and reactive. Extraocular muscles intact. No nystagmus. Negative test of skew. Anicteric
NECK: Supple, nontender, no meningismus, no significant adenopathy.
ENT: posterior pharynx is clear, oral mucosa is moist. TM clear b/l, nares patent.
CARDIAC: Irregularly irregular at a rate of 70-80. 2/6 holosystolic murmur left sternal border
LUNGS: Clear breath sounds bilaterally, no acute respiratory distress, no wheezes/rales/rhonchi
ABDOMEN: Soft, nondistended, without focal tenderness, normoactive BS.
NEUROLOGICAL: Alert and oriented x3, no focal neuro deficits. Motor strength is 5/5 bilaterally. Gross sensation is intact. Kaylene-Hallpike minimally positive with head rotation to the left.
SKIN: Warm and dry, normal color, skin intact. No rash.
MUSCULOSKELETAL: No C/C/E. peripheral pulses are full and equal b/l. No palpable tenderness.
PSYCH: Normal and appropriate interaction.
Course
Orders/Labs/Results
Orders:
Orders
12/08/24 21:02
EKG [Electrocardiogram (*1)] Urgent
Reason for Study: Vertigo / Dizzy
EKG- Treatment ONCE
12/08/24 21:06
Basic Metabolic Panel Urgent
Complete Blood Count/With Diff Urgent
Lipase Urgent
12/08/24 22:48
Hep Liver [Yvcdh-Dnra-Viilplt] Urgent
Potassium Urgent
12/08/24 23:45
Meclizine [Antivert] 25 mg PO NOW STA
12/09/24 00:04
CT Head W/o Iv Contrast Urgent
Reason For Exam: acute dizziness, N/V, on Eliquis
12/09/24 02:29
Orthostatic VS- Treatment ONCE
Abnormal Lab Results
12/08/24 12/08/24
21:06 22:48
BUN 21 H mg/dl
(7-17)
Glucose 184 H mg/dl
(70-99)
AST 42 H U/L
(14-36)
12/08/24 21:06
12/08/24 22:48
Vital Signs
Initial and Last Documented VS:
Initial Vital Signs
Temp Pulse Resp BP Pulse Ox
97.7 F 102 18 159/91 99
12/08/24 21:01 12/08/24 21:01 12/08/24 21:01 12/08/24 21:01 12/08/24 21:01
Last Documented Vital Signs
Temp Pulse Resp BP Pulse Ox
97.7 F 100 15 142/68 98
12/08/24 21:01 12/09/24 02:00 12/09/24 02:00 12/09/24 01:26 12/09/24 02:00
MDM/Problems Addressed
Differential Diagnosis Includes:
The Differential Diagnosis includes, in no particular order and is not limited to:
- Benign Paroxysmal Positional Vertigo
- Vestibular Neuritis
- Labyrinthitis
- M�ni�re�s Disease
- Orthostatic Hypotension
- Hypoglycemia
- Dehydration
- Transient Ischemic Attack
- Inner Ear Infection
- Medication Side Effect
MDM/Problems Addressed:
Acute Problems:
- Dizziness
- Vomiting
Chronic Problems:
- Atrial fibrillation
- History of stroke with residual left-arm weakness
Plan:
- Administer meclizine for dizziness.
- Conduct a CT scan of the head to rule out intracranial pathology due to her anticoagulation therapy with apixaban.
- Provide water for hydration.
- Monitor symptoms and reassess if necessary.
Chronic conditions affecting care: HTN and Neurological disorder
*Pulse Oximetry
SaO2: 99
Oxygen Mode of Delivery: Room air
Patient hypoxic: no
*EKG
Interpreted by ED Provider?: Yes
Interpretation: abnormal
Comparison EKG: no changes (Unchanged from previous 2020)
Rate: normal
Rhythm: a-fib
Tilden: normal axis
Interval: long QT (Borderline long QT)
QRS Pattern: normal QRS and poor R-wave progression
Ischemia: non-specific ST changes
*[employer]anger Interpretation
Rate: normal
Rhythm: a-fib
*Critical Care Note
Total Time (30-74mins, 75-104mins- exclusive of procedures): Not Applicable
Update Note
Update Note:
03:30
CT is unremarkable.
Patient has had complete resolution of dizziness. No further nausea.
Orthostatic vital signs are negative.
She is ambulated to and from the bathroom with steady unaided gait.
Acute vertigo appears benign, peripheral in nature. Similar episodes in the past.
A prescription for meclizine has been provided for as needed dizziness.
Recommend prompt follow-up with PCP for recheck.
Return precautions discussed.
ED Attending Note
-
Portions of this chart may have been created with voice recognition software.� Occasional wrong word or��sound alike� substitutions may have occurred due to the inherent limitations of voice recognition software.
Discharge Plan
Departure
Patient Disposition: Home (Routine Discharge)
Date of Disposition: 12/09/24
Time of Disposition: 03:33
Patient with high blood pressure during this ER visit?: No
Condition: Good
Discharge Problem:
Acute onset of severe vertigo
Instructions: Vertigo (a Type of Dizziness) (DC)
Prescriptions:
New
meclizine 25 mg tablet
25 mg PO QID PRN (Reason: dizziness, nausea) Qty: 20 0RF
No Action
estradiol 1 MG tablet
0.5 mg PO DAILY
diclofenac sodium 1 DROP drops
1 drp ophthalmic (eye) QIDPRN PRN (Reason: pain R eye)
calcium carbonate [Antacid (calcium carbonate)] 1 TABLET tablet,chewable
500 mg PO BIDPRN PRN (Reason: heart burn)
loratadine 10 MG tablet
10 mg PO DAILY PRN (Reason: allergies)
Ca-D3-mag [id number]-vjk-phuc-bor [Calcium 600-D3 Plus (mag-zinc)] 1 EACH tablet
1 ea PO BID
Patient Comments:
patient is off for 2 months now, will start back up in December
famotidine 20 MG tablet
40 mg PO HS
metoprolol succinate 25 MG tablet extended release 24 hr
50 mg PO HS
furosemide 20 MG tablet
20 mg PO .EVERYOTHERDAY
ipratropium bromide 1 SPRAY spray,non-aerosol
2 spray intranasal TID
rosuvastatin 5 MG tablet
5 mg PO QPM
guaifenesin [Mucus Relief ER] 600 MG tablet extended release 12hr
600 mg PO DAILY
metoprolol succinate 25 MG tablet extended release 24 hr
37.5 mg PO .AM
diltiazem HCl 120 MG capsule,extended release 24hr
120 mg PO DAILY
Voltaren
topical PRN PRN (Reason: pain)
acetaminophen 325 MG tablet
500 mg PO Q4HPRN PRN (Reason: pain)
aspirin 81 MG tablet,delayed release (DR/EC)
81 mg PO DAILY
cyanocobalamin (vitamin B-12) 1,000 MCG tablet
1,000 mcg PO DAILY
apixaban [Eliquis] 5 MG tablet
5 mg PO BID
meclizine 25 MG tablet
25 mg PO Q8HPRN PRN (Reason: nausea or vertigo) Qty: 12 0RF
ondansetron 4 MG tablet,disintegrating
4 mg PO TIDPRN PRN (Reason: nausea/vomiting) Qty: 12 0RF
Referrals:
Onel Colmenares Jr., DO [Family Provider, Internal Medicine] - Call in 1-3 days for appt
Interventions
Interventions:
*Risk Screen - Suicide Last Done: 12/08/24 20:59
*General Assessment Last Done: 12/08/24 20:59
*Neglect/Abuse Screening Last Done: 12/08/24 20:59
*ED- Fall Risk Assessment Last Done: 12/08/24 20:59
*ED COVID-19 Vaccine History Last Done: 12/08/24 21:09
ED- Neurological Assessment Last Done: 12/08/24 21:08
ED- Cardiac Assessment Last Done: 12/08/24 21:08
ED Swallowing Screen Last Done: 12/08/24 21:08
Discharge Date and Time
Print Language: MALDIVIAN
== END 2024-12-09 03:40 | disposition home or self-care (01) ==
LOC: EMR 20:55
PROVIDERS: Emergency Medicine; EMERGENCY PHYSICIAN Emergency Medicine; FAMILY PHYSICIAN Family Medicine
DX: R42 Dizziness and giddiness (principal); R11.2 Nausea with vomiting, unspecified; I48.20 Chronic atrial fibrillation, unspecified; I11.0 Hypertensive heart disease with heart failure; I50.9 Heart failure, unspecified; E78.00 Pure hypercholesterolemia, unspecified; I25.2 Old myocardial infarction; I38 Endocarditis, valve unspecified; Z79.01 Long term (current) use of anticoagulants; Z82.1 Family history of blindness and visual loss; Z82.3 Family history of stroke; Z82.49 Family history of ischemic heart disease and other diseases of the circulatory system; Z90.710 Acquired absence of both cervix and uterus; Z95.2 Presence of prosthetic heart valve
CPT/HCPCS: 99284; 70450; 80048; 80076; 83690; 84132; 85025; 93005

== ENCOUNTER → 2024-12-18 08:42 | Outpatient (REF) | payer MEDICARE, OTHER, SELFPAY ==
[2024-12-18 09:39] LABS: Hematocrit 41.5 % (37.0-47.0); Hemoglobin 13.8 g/dL (12.0-16.0); Mean Corp Hgb Conc. 33.3 g/dL (33.0-37.0); Mean Corpuscular Volume 88.7 fL (81.0-99.0); Nucleated Red Blood Cells % 0 %; Platelet Count 150 10^3/uL (130-400); Red Cell Dist. Width 13.9 % (11.5-14.5)
[2024-12-18 09:40] LABS: Hematocrit 42.2 % (37.0-47.0); Hemoglobin 14.1 g/dL (12.0-16.0); Mean Corp Hgb Conc. 33.4 g/dL (33.0-37.0); Mean Corpuscular Volume 90.4 fL (81.0-99.0); Nucleated Red Blood Cells % 0 %; Platelet Count 152 10^3/uL (130-400); Red Cell Dist. Width 13.9 % (11.5-14.5)
[2024-12-18 09:55] LABS: ALT (SGPT) 28 U/L (0-35); AST (SGOT) 37 U/L (14-36); Albumin 4.5 g/dl (3.5-5.0); Alkaline Phosphatase 97 U/L (38-126); Blood Urea Nitrogen 22 mg/dl (7-17); Calcium 10.1 mg/dl (8.4-10.2); Carbon Dioxide 32 mmol/L (22-30); Chloride 102 mmol/L (98-107); Glucose 116 mg/dl (70-99); HDL Cholesterol 80 mg/dl; LDL Cholesterol, Calculated 67 mg/dl; Magnesium 1.9 mg/dl (1.6-2.3); Potassium 3.5 mmol/L (3.5-5.1); Sodium 140 mmol/L (135-145); Total Protein 7.8 g/dl (6.3-8.2); Very Low Density Lipoprotein 14 mg/dl (0-30); eGFR > 60.00
[2024-12-18 09:59] LABS: ALT (SGPT) 26 U/L (0-35); AST (SGOT) 37 U/L (14-36); Albumin 4.5 g/dl (3.5-5.0); Alkaline Phosphatase 97 U/L (38-126); Blood Urea Nitrogen 23 mg/dl (7-17); Calcium 10.0 mg/dl (8.4-10.2); Carbon Dioxide 30 mmol/L (22-30); Chloride 103 mmol/L (98-107); Glucose 116 mg/dl (70-99); HDL Cholesterol 75 mg/dl; LDL Cholesterol, Calculated 70 mg/dl; Potassium 3.7 mmol/L (3.5-5.1); Sodium 140 mmol/L (135-145); Total Protein 7.4 g/dl (6.3-8.2); Very Low Density Lipoprotein 14 mg/dl (0-30); eGFR > 60.00
[2024-12-18 10:15] LABS: Urine Character Clear (Clear)
[2024-12-18 10:19] LABS: Glycohemoglobin (HgbA1c) 6.2 % (4.0-5.6)
[2024-12-18 10:35] LABS: Urine Red Cell Cast 0-2 /LPF; Urine White Cell 0-2 /HPF (0-5)
== END ==
LOC: REG 08:42
PROVIDERS: ATTENDING PHYSICIAN Internal Medicine; FAMILY PHYSICIAN Family Medicine; REFERRING PHYSICIAN Internal Medicine Cardiovascular Disease
DX: R73.01 Impaired fasting glucose (principal); E78.5 Hyperlipidemia, unspecified; M25.50 Pain in unspecified joint; R53.83 Other fatigue; Z13.29 Encounter for screening for other suspected endocrine disorder; M35.00 Sjogren syndrome, unspecified; R76.8 Other specified abnormal immunological findings in serum; I48.0 Paroxysmal atrial fibrillation; I35.0 Nonrheumatic aortic (valve) stenosis; I35.1 Nonrheumatic aortic (valve) insufficiency; I10 Essential (primary) hypertension; I47.10 Supraventricular tachycardia, unspecified; I49.3 Ventricular premature depolarization; R09.89 Other specified symptoms and signs involving the circulatory and respiratory systems; I34.0 Nonrheumatic mitral (valve) insufficiency
CPT/HCPCS: 36415; 80053; 80061; 81003; 81015; 82550; 82570; 83036; 83735; 84156; 84443; 85025

== ENCOUNTER → 2025-02-02 13:56 | Outpatient (REF) | payer MEDICARE, OTHER, SELFPAY | LOC: WDC 13:56 | PROVIDERS: ATTENDING PHYSICIAN Obstetrics & Gynecology Gynecology; FAMILY PHYSICIAN Family Medicine | DX: Z12.31 Encounter for screening mammogram for malignant neoplasm of breast (principal); Z12.39 Encounter for other screening for malignant neoplasm of breast | CPT/HCPCS: 77063; 77067 ==

== ENCOUNTER 2025-03-05 13:36 | Emergency (ER) | payer MEDICARE, OTHER, SELFPAY ==
[2025-03-05 13:49] VITALS: BP 148/92
--- NOTE | 2025-03-05 14:31 | ED.GENMED ---
History of Present Illness
General
Chief Complaint: Fall
Source: patient
Time Seen by Provider: 03/05/25 14:27
History of Present Illness
History of Present Illness:
84-year-old female with past medical history of permanent A-fib, previous CVA, hypertension, hyperlipidemia, CHF, status post TAVR presenting to the emergency department for evaluation after she was kneeling over looking into some boxes, went to get
up and then states she is not sure how it happened but she fell backwards striking the back of her head on the ground. Patient states she is concern for possible intracranial bleeding due to being on the blood thinners. There was no LOC, no
vomiting, no visual changes, patient has no other concerns presently. She did not take anything for pain prior to arrival. No other concerns.
Past History
Past History
ED Past Medical History: Arrthythmia (Chronic atrial fibrillation), CHF, CVA, HTN, Hypercholesterolemia, Valvular disease and Psychiatric
ED Past Surgical History: Cardiac (TAVR 2020) and Gynecological (Hysterectomy)
Social History
Tobacco: Non-smoker
Alcohol: None
Drug: None
Personal:
Living: with family
Family History
Family History: Other (Father with [place] mother with stroke)
Review of Systems
Review of Systems
All Other Systems: ROS reviewed and negative except as documented in HPI and ROS
Phy Exam
Physical Exam
Physical Exam:
GENERAL: Alert , in no apparent distress
HEAD: Normocephalic atraumatic
EYE: conjunctiva clear
NECK: Supple, no midline tenderness
ENT: o/p clr, mmm.
CARDIAC: Rate controlled, irregularly irregular
LUNGS: Clear breath sounds bilaterally, no acute respiratory distress, no wheezes/rales/rhonchi
NEUROLOGICAL: Alert and oriented, ambulatory with steady gait
SKIN: Warm and dry, skin intact.
MUSCULOSKELETAL: well perfused.
PSYCH: Normal and appropriate interaction.
Scores
Heart Failure Risk
Heart Failure Risk Score: Not Applicable
Heart Score for Chest Pain Patients
STEMI patient?: Not applicable
Withdrawal Assessment of Alcohol
Withdrawal Assessment Completed?: Not applicable
Course
Orders/Labs/Results
Orders:
Orders
03/05/25 13:52
CT Head W/o Iv Contrast Urgent
Comment:
Reason For Exam: head injury on eliquis
Vital Signs
Initial and Last Documented VS:
Initial Vital Signs
Temp Pulse Resp BP Pulse Ox
98.2 F 99 20 148/92 100
03/05/25 13:49 03/05/25 13:49 03/05/25 13:49 03/05/25 13:49 03/05/25 13:49
Last Documented Vital Signs
Temp Pulse Resp BP Pulse Ox
98.2 F 80 18 132/76 99
03/05/25 13:49 03/05/25 15:45 03/05/25 15:45 03/05/25 15:45 03/05/25 15:45
MDM/Problems Addressed
Differential Diagnosis Includes:
Accidental fall
Contusion
Concussion
ICH
MDM/Problems Addressed:
84-year-old female presented to ER for evaluation after an accidental slip and fall resulting in head injury. Patient is most concerned due to being anticoagulated. Given her anticoagulated status will obtain CT scan of the head. Anticipate
discharge home pending normal imaging.
Chronic conditions affecting care: Arrhythmia
*Radiology
Radiology exam reviewed: radiology read reviewed
*Pulse Oximetry
SaO2: 100
Oxygen Mode of Delivery: Room air
Patient hypoxic: no
*Critical Care Note
Total Time (30-74mins, 75-104mins- exclusive of procedures): Not Applicable
Patient Management
Escalation/DeEscalation of care consider admission/obs:
CT of the head is negative for any acute intracranial pathology. Patient stable for discharge home.
ED Attending Note
-
Portions of this chart may have been created with voice recognition software.� Occasional wrong word or��sound alike� substitutions may have occurred due to the inherent limitations of voice recognition software.
Discharge Plan
Departure
Patient Disposition: Home (Routine Discharge)
Date of Disposition: 03/05/25
Time of Disposition: 15:31
Patient with high blood pressure during this ER visit?: Yes
Discharge Problem:
Head injury
Instructions: Head Injury in Adults (DC)
Prescriptions:
No Action
estradiol 1 MG tablet
0.5 mg PO DAILY
diclofenac sodium 1 DROP drops
1 drp ophthalmic (eye) QIDPRN PRN (Reason: pain R eye)
calcium carbonate [Antacid (calcium carbonate)] 1 TABLET tablet,chewable
500 mg PO BIDPRN PRN (Reason: heart burn)
loratadine 10 MG tablet
10 mg PO DAILY PRN (Reason: allergies)
Ca-D3-mag [id number]-ydo-phuc-bor [Calcium 600-D3 Plus (mag-zinc)] 1 EACH tablet
1 ea PO BID
Patient Comments:
patient is off for 2 months now, will start back up in December
famotidine 20 MG tablet
40 mg PO HS
metoprolol succinate 25 MG tablet extended release 24 hr
50 mg PO HS
furosemide 20 MG tablet
20 mg PO .EVERYOTHERDAY
ipratropium bromide 1 SPRAY spray,non-aerosol
2 spray intranasal TID
rosuvastatin 5 MG tablet
5 mg PO QPM
guaifenesin [Mucus Relief ER] 600 MG tablet extended release 12hr
600 mg PO DAILY
metoprolol succinate 25 MG tablet extended release 24 hr
37.5 mg PO .AM
diltiazem HCl 120 MG capsule,extended release 24hr
120 mg PO DAILY
Voltaren
topical PRN PRN (Reason: pain)
acetaminophen 325 MG tablet
500 mg PO Q4HPRN PRN (Reason: pain)
aspirin 81 MG tablet,delayed release (DR/EC)
81 mg PO DAILY
cyanocobalamin (vitamin B-12) 1,000 MCG tablet
1,000 mcg PO DAILY
apixaban [Eliquis] 5 MG tablet
5 mg PO BID
meclizine 25 MG tablet
25 mg PO Q8HPRN PRN (Reason: nausea or vertigo) Qty: 12 0RF
ondansetron 4 MG tablet,disintegrating
4 mg PO TIDPRN PRN (Reason: nausea/vomiting) Qty: 12 0RF
meclizine 25 mg tablet
25 mg PO QID PRN (Reason: dizziness, nausea) Qty: 20 0RF
Interventions
Interventions:
*General Assessment Last Done: 03/05/25 13:49
*Nursing Disposition Last Done: 03/05/25 15:46
ED-Musculoskeletal Assessment Last Done: 03/05/25 14:39
ED- Neurological Assessment Last Done: 03/05/25 14:32
ED-Skin Assessment Last Done: 03/05/25 14:39
Discharge Date and Time
Discharge Date/Time: 03/05/25 15:47
Print Language: SLOVAK
[2025-03-05 15:45] VITALS: BP 132/76
== END 2025-03-05 15:47 | disposition home or self-care (01) ==
LOC: EMR 13:36
PROVIDERS: EMERGENCY PHYSICIAN Emergency Medicine; FAMILY PHYSICIAN Family Medicine
DX: S09.90XA Unspecified injury of head, initial encounter (principal); W01.10XA Fall on same level from slipping, tripping and stumbling with subsequent striking against unspecified object, initial encounter; E78.00 Pure hypercholesterolemia, unspecified; I11.0 Hypertensive heart disease with heart failure; I50.9 Heart failure, unspecified; I48.21 Permanent atrial fibrillation; Z86.73 Personal history of transient ischemic attack (TIA), and cerebral infarction without residual deficits; Z79.01 Long term (current) use of anticoagulants; Z95.2 Presence of prosthetic heart valve
CPT/HCPCS: 99284; 70450